=== PATIENT | male | born 1970 | race Native Hawaiian/Other Pacific Islander ===

== ENCOUNTER 2018-07-19 21:56 | Emergency (ER) | payer OTHER ==
[~2018-07-19] VITALS: Ht 182.9 cm; Wt 75.8 kg
[2018-07-19 22:19] VITALS: BP 119/65; TEMP 102.1
== END 2018-07-19 22:34 | disposition home or self-care (01) ==
LOC: ED 21:56
DX: F29 Unspecified psychosis not due to a substance or known physiological condition (principal)
CPT/HCPCS: J2060

== ENCOUNTER 2018-07-19 22:52 | Emergency (ER) | payer OTHER ==
[~2018-07-19] VITALS: Ht 182.9 cm; Wt 75.8 kg
[2018-07-20 02:16] LABS: PLATELET COUNT 146 K/uL (142-355)
[2018-07-20 05:58] LABS: POTASSIUM 3.3 mmol/L (3.6-5.2)
[2018-07-20 08:45] LABS: PLATELET COUNT 131 K/uL (142-355)
[2018-07-20 09:21] VITALS: TEMP 98.6
[2018-07-20 13:30] VITALS: BP 99/67
== END 2018-07-20 13:30 | disposition short-term general hospital (02) ==
LOC: ED 22:52
PROVIDERS: Emergency Medicine
PROC: 009U3ZX Drainage of Spinal Canal, Percutaneous Approach, Diagnostic (ICD-10-PCS; principal; 2018-07-19)
PROC: 0T9B70Z Drainage of Bladder with Drainage Device, Via Natural or Artificial Opening (ICD-10-PCS; 2018-07-19)
DX: R41.82 Altered mental status, unspecified (principal); R50.9 Fever, unspecified; B20 Human immunodeficiency virus [HIV] disease; R00.0 Tachycardia, unspecified
CPT/HCPCS: 36415; 80053; 80307; 81000; 82945; 83605; 84155; 85027; 86361; 86592; 87040; 87070; 87077; 87205; 87529; 87899; 89050; 93005; 96361; 96365; 96366; 96375; 96376; 99285; J0133; J0696; J1100; J1170; J2060; J2250; J3486; Q9963

== ENCOUNTER 2018-07-20 13:41 | Outpatient (CLI) | payer OTHER | END 2018-07-20 14:58 | disposition short-term general hospital (02) | LOC: AMB 13:41 | DX: R41.82 Altered mental status, unspecified (principal); R50.9 Fever, unspecified; F91.8 Other conduct disorders; B20 Human immunodeficiency virus [HIV] disease; F15.129 Other stimulant abuse with intoxication, unspecified; L98.8 Other specified disorders of the skin and subcutaneous tissue | CPT/HCPCS: A0425; A0427 ==